=== PATIENT | female | born 1965 | race Asian ===

== ENCOUNTER 2019-01-21 12:58 | Emergency (ER) | payer OTHER ==
[~2019-01-21] VITALS: Ht 154.9 cm; Wt 69.2 kg
[~2019-01-21 12:58] MED LIST: AMLO5TAB4 PO; BUTA1CAP38 PO; PRED20TA PO
[2019-01-21 13:06] VITALS: Ht 154.9 cm; Wt 69.2 kg
[2019-01-21] MEDS ORDERED: KETOROLAC 30 MG INJ IV STA (13:28)
[2019-01-21] MEDS ORDERED: SOD CHLORIDE 0.9% 1,000 ML IV STA (13:28)
[2019-01-21] MEDS ORDERED: ONDANSETRON 4 MG INJ IV STA (13:28)
[2019-01-21 15:59] VITALS: BP 184/85; PULSE 63; RESP 18
[2019-01-21] MEDS ORDERED: DEXAMETHASONE 10 MG/ML 1 ML INJ IV ONE (16:30)
== END 2019-01-21 16:21 | disposition home or self-care (01) ==
LOC: FTE 12:58
DX: R51 Headache (principal); R10.84 Generalized abdominal pain
CPT/HCPCS: 70450; 80053; 81003; 81025; 85025; 87086; 96361; 96374; 96375; J1100; J1885; J2405; J7030; Z7502